=== PATIENT | male | born 1950 | race African-American/Black ===

== ENCOUNTER 2019-10-17 10:53 | Inpatient (IN) | payer MEDICARE, OTHER ==
[~2019-10-17] VITALS: Ht 172.7 cm; Wt 77.1 kg
[2019-10-17 04:00] VITALS: BP 124/54
[2019-10-17 11:43] LABS: HEMATOCRIT. 40.3 % (42.0-52.0); HEMOGLOBIN. 13.2 g/dL (14.0-18.0); MEAN CORPUSCULAR HEMOGLOBIN 30.8 pg (28.0-32.0); MEAN CORPUSCULAR VOLUME 94.2 fL (80.0-94.0); RED BLOOD CELL COUNT 4.28 mill/uL (4.7-6.1); RED CELL DISTRIBUTION WIDTH 14.8 % (11.6-14.6)
[2019-10-17 11:49] LABS: CHLORIDE 107 mEq/L (98-107)
[2019-10-17 12:08] LABS: PLATELET 216 x1000/uL (130-400)
[2019-10-17 12:11] LABS: PLATELET ESTIMATE NORMAL
[2019-10-17] MEDS ORDERED: ONDANSETRON HCL 4MG/2ML INJ IV PRN (15:30)
[2019-10-17] MEDS ORDERED: ACETAMINOPHEN 325MG TABLET PO PRN (15:30)
[2019-10-17 18:47] LABS: T4 FREE 1.16 ng/dL (0.76-1.46)
[2019-10-18 00:30] VITALS: BP_SYST 151; BP_SYST 165; BP_DIAS 65; BP_DIAS 66; BP_DIAS 70
[2019-10-18 05:54] LABS: BASOPHILS % 0.7 % (0.0-2.0); EOSINOPHILS % 2.6 % (0.0-5.0); HEMATOCRIT. 35.5 % (42.0-52.0); HEMOGLOBIN. 11.9 g/dL (14.0-18.0); LYMPHOCYTES % 31.9 % (20.0-50.0); MEAN CORPUSCULAR HEMOGLOBIN 31.1 pg (28.0-32.0); MEAN CORPUSCULAR VOLUME 92.8 fL (80.0-94.0); MEAN PLATELET VOLUME 8.6 fl (7.4-10.4); MONOCYTES % 8.2 % (2.0-8.0); NEUTROPHILS % 56.6 % (40.0-76.0); PLATELET 219 x1000/uL (130-400); RED BLOOD CELL COUNT 3.83 mill/uL (4.7-6.1); RED CELL DISTRIBUTION WIDTH 14.9 % (11.6-14.6)
[2019-10-18] MEDS ORDERED: ASPI-986 PO (06:53)
[2019-10-18] MEDS ORDERED: SIMV80TA90 PO (06:55)
[2019-10-18] MEDS ORDERED: VALS320T16 PO (06:55)
[2019-10-18 06:58] LABS: CHLORIDE 108 mEq/L (98-107)
[2019-10-18 08:00] VITALS: BP_SYST 136; BP_SYST 145; BP_SYST 146; BP_DIAS 54; BP_DIAS 58; BP_DIAS 61
[2019-10-18] MEDS: LEVOTHYROXINE SODIUM 25MCG TABLET PO SCH (08:38)
[2019-10-18 12:00] VITALS: BP 157/64
[2019-10-18] MEDS ORDERED: REGADENOSON 0.4 MG/5 ML IV NR (14:00)
[2019-10-18 16:00] VITALS: BP 153/90
[2019-10-18 20:30] VITALS: BP 139/77
[2019-10-19] VITALS (8 sets, daily range): BP systolic 105–181; BP diastolic 44–77
[2019-10-19] MEDS: LEVOTHYROXINE SODIUM 25MCG TABLET PO SCH (07:20)
[2019-10-19] MEDS ORDERED: REGADENOSON 0.4 MG/5 ML IV NR (09:00)
[2019-10-19] MEDS ORDERED: AMLODIPINE 5MG TABLET PO SCH (13:45)
== END 2019-10-19 17:10 | disposition home or self-care (01) | DRG 74 ==
LOC: ER 11:19 → 6WST 14:03 → EDBEDREQ 19:31 → ENRESERV 23:20
PROVIDERS: ADMIT Internal Medicine; ATTEND Internal Medicine
DX: G90.8 Other disorders of autonomic nervous system (principal); I10 Essential (primary) hypertension; E78.5 Hyperlipidemia, unspecified; I25.10 Atherosclerotic heart disease of native coronary artery without angina pectoris; R00.1 Bradycardia, unspecified; D64.9 Anemia, unspecified; I25.2 Old myocardial infarction; Z98.61 Coronary angioplasty status
CPT/HCPCS: 36415; 71045; 78452; 80048; 80053; 80061; 83036; 83880; 84439; 84443; 84484; 85025; 93005; 93017; 93306; 93970; 97162; 99285; A9500